=== PATIENT | female | born 1985 | race Caucasian/White ===

== ENCOUNTER 2019-07-30 05:44 | Inpatient (IN) ==
[2019-07-30] MEDS ORDERED: ONDANSETRON 4 MG/2 ML VIAL IV PRN ×2 (05:54→13:28)
[2019-07-30] MEDS ORDERED: LACTATED RINGERS 1,000 ML IV SCH (06:00)
[2019-07-30 06:17] LABS: Basophils % 0.3 % (0.0-0.8); Eosinophils # 0.1 10*3/uL (0.0-0.87); Eosinophils % 0.8 % (0.00-10.9); Hematocrit 36.3 VOL% (35.7-47.0); Hemoglobin 11.8 GM/DL (12.0-16.0); Immature Granulocytes Absolute 0.12 #; Lymphocytes # 2.3 10*3/uL (1.4-4.0); Lymphocytes % 19.4 % (21.3-54.2); Mean Corpuscular HGB Conc 32.5 GM/DL (32-36); Mean Corpuscular Volume 78.9 FL (87-102); Mean Platelet Volume 10.6 FL (9.6-12.0); Monocytes % 7.6 % (1.7-12.7); Neutrophils % 70.9 % (38.7-73.9); Platelet Count 291 T/CUMM (130-400); White Blood Count 11.6 T/CUMM (4-12)
[2019-07-30] MEDS ORDERED: OXYTOCIN/LR 20 UNIT/1,000 ML BAG IV ONE ×2 (07:05→13:28)
[2019-07-30 07:25] LABS: INR 0.8; PT Patient Result 9.2 SECS (9.6-12.2); Partial Thromboplastin Time 23.1 SECS (20.8-36.0)
[2019-07-30] MEDS ORDERED: OXYTOCIN/LR 20 UNIT/1,000 ML BAG IV SCH (07:30)
[2019-07-30 07:33] LABS: Albumin 2.7 G/DL (3.4-5.0); Bilirubin,Direct 0.15 MG/DL (0.0-0.20); Bilirubin,Total 0.4 MG/DL (0.2-1.0); Calcium 9.7 MG/DL (8.5-10.1); Osmolality,Calculated 274.7 MOS/KG (273-304)
[2019-07-30] MEDS ORDERED: ONDANSETRON 4 MG/2 ML VIAL IV ONE (07:43)
[2019-07-30] MEDS ORDERED: CITRIC ACID/SODIUM CITRATE 30 ML UDCUP PO ONE (07:43)
[2019-07-30] MEDS ORDERED: NALOXONE 0.4 MG/ML VIAL IV PRN (07:43)
[2019-07-30] MEDS ORDERED: hydrOXYzine HCL 25 MG/1 ML VIAL IM PRN (07:43)
[2019-07-30] MEDS ORDERED: diphenhydrAMINE 50 MG/1 ML VIAL IV PRN ×2 (07:43)
[2019-07-30] MEDS ORDERED: ePHEDrine 50 MG/ML AMP IV PRN (07:43)
[2019-07-30] MEDS ORDERED: PROMETHAZINE 25 MG/1 ML VIAL IM ONE (07:43)
[2019-07-30] MEDS ORDERED: LACTATED RINGERS 1,000 ML IV ONE (07:43)
[2019-07-30] MEDS ORDERED: FAMOTIDINE 20 MG/2 ML VIAL IV ONE (07:43)
[2019-07-30] MEDS ORDERED: fentaNYL 2 MCG/ROPIV 0.2% EPID 100 ML EPIDURAL SCH (08:00)
[2019-07-30] MEDS: LABETALOL 100 MG TABLET PO SCH ×3 (08:28→21:23)
[2019-07-30 11:14] LABS: Amorphous Crystals,Urine Occasional /HPF (Few); Apearance,Urine Slightly Hazy (Clear); Bacteria,Urine Many /HPF (Few); Bilirubin,Urine Negative (Negative); Blood, Urine Moderate mg/dL (Negative); Glucose,Urine (UA) Negative (Negative); Ketones,Urine 5 mg/dL (Negative); Mucus,Urine Occasional /LPF (Occasional); Nitrite,Urine Negative (Negative); Protein,Urine Negative; RBC,Urine 11 /HPF (0-4); Squamous Epithelial Cell,Urine Occasional /HPF (0-10); Urine Color Yellow (Yellow); Urine Specific Gravity 1.006 (1.001-1.035); Urine Urobilinogen < 2.0 EU/DL (0.2-1.0); WBC,Urine 65 /HPF (0-6)
[2019-07-30] MEDS ORDERED: miSOPROStoL 200 MCG TABLET ONE (12:20)
[2019-07-30] MEDS ORDERED: CARBOPROST TROMETHAMINE 250 MCG/ML AMP IM ONE (12:20)
[2019-07-30] MEDS ORDERED: LIDOCAINE 1% 50 ML VIAL ONE (12:20)
[2019-07-30] MEDS ORDERED: WITCH HAZEL PADS 100/JAR TOP PRN (13:28)
[2019-07-30] MEDS ORDERED: DIPH/TET/ACEL PERT BOOSTER VACCINE 0.5 ML VIAL IM ONE (13:28)
[2019-07-30] MEDS ORDERED: MEASLES/MUMPS/RUBELLA VACCINE 0.5 ML VIAL SUBCUT ONE (13:28)
[2019-07-30] MEDS ORDERED: ACETAMINOPHEN 325 MG TABLET PO PRN (13:28)
[2019-07-30] MEDS ORDERED: HYDROCORTISONE 2.5% RECTAL CREAM 30 GM TUBE TOP PRN (13:28)
[2019-07-30] MEDS ORDERED: BENZOCAINE 20%/MENTHOL 0.5% SPRAY 56 GM CAN TOP PRN (13:28)
[2019-07-30] MEDS ORDERED: oxyCODONE/ACETAMINOPHEN 5-325 MG TABLET PO PRN (13:28)
[2019-07-30] MEDS ORDERED: RHO(D) IMMUNE GLOBULIN 300 MCG SYRINGE IM ONE (13:28)
[2019-07-30] MEDS ORDERED: LANOLIN 50% CREAM 0.3 OZ TUBE TOP PRN (13:28)
[2019-07-30] MEDS ORDERED: BISACODYL 10 MG SUPP RECTAL PRN (13:28)
[2019-07-30] MEDS: DOCUSATE SODIUM 100 MG CAPSULE PO SCH (21:23)
[2019-07-31] MEDS: IBUPROFEN 800 MG TABLET PO PRN ×3 (02:03→20:44)
[2019-07-31 05:46] LABS: Basophils % 0.2 % (0.0-0.8); Eosinophils # 0.1 10*3/uL (0.0-0.87); Eosinophils % 0.6 % (0.00-10.9); Hematocrit 31.5 VOL% (35.7-47.0); Hemoglobin 10.1 GM/DL (12.0-16.0); Immature Granulocytes % 0.5 %; Immature Granulocytes Absolute 0.08 #; Lymphocytes # 1.3 10*3/uL (1.4-4.0); Lymphocytes % 8.2 % (21.3-54.2); Mean Corpuscular HGB Conc 32.1 GM/DL (32-36); Mean Corpuscular Volume 79.3 FL (87-102); Mean Platelet Volume 11.6 FL (9.6-12.0); Monocytes % 8.4 % (1.7-12.7); Neutrophils % 82.1 % (38.7-73.9); Platelet Count 207 T/CUMM (130-400); Red Blood Count 3.97 MC/CUMM (3.8-5.5); Red Cell Distribution Width 14.1 % (9.3-17.3); White Blood Count 16.2 T/CUMM (4-12)
[2019-07-31] MEDS: DOCUSATE SODIUM 100 MG CAPSULE PO SCH ×2 (08:58→20:44)
[2019-07-31] MEDS: MAGNESIUM HYDROXIDE SUSP 30 ML UDCUP PO PRN ×2 (08:59→20:44)
[2019-07-31] MEDS: LABETALOL 100 MG TABLET PO SCH ×2 (08:59→13:14)
[2019-07-31] MEDS ORDERED: LABETALOL 100 MG TABLET ONE (13:09)
[2019-07-31] MEDS: ceFAZolin 2,000 MG in PREMIX 1 EACH IV SCH ×2 (14:49→20:44)
[2019-07-31] MEDS: LABETALOL 200 MG TABLET PO SCH ×2 (16:36→23:45)
[2019-08-01] MEDS: LABETALOL 200 MG TABLET PO SCH (01:13)
[2019-08-01] MEDS: ceFAZolin 2,000 MG in PREMIX 1 EACH IV SCH ×4 (02:27→21:13)
[2019-08-01] MEDS: oxyCODONE/ACETAMINOPHEN 5-325 MG TABLET PO PRN ×2 (02:31→19:53)
[2019-08-01] MEDS: IBUPROFEN 800 MG TABLET PO PRN ×3 (02:31→19:52)
[2019-08-01] MEDS: DOCUSATE SODIUM 100 MG CAPSULE PO SCH ×2 (09:29→21:47)
[2019-08-01] MEDS: LABETALOL 100 MG TABLET PO SCH ×2 (09:29→21:47)
[2019-08-01] MEDS: LACTATED RINGERS 1,000 ML IV SCH (20:56)
[2019-08-01] MEDS: CLINDAMYCIN INJ 900 MG in PREMIX 1 EACH IV SCH (21:45)
[2019-08-01] MEDS: ENOXAPARIN 40 MG/0.4 ML SYRINGE SUBCUT SCH (21:47)
[2019-08-01] MEDS ORDERED: GENTAMICIN INJ 280 MG in SODIUM CHLORIDE 0.9% 100 ML IV ONE (22:00)
[2019-08-02] MEDS: ceFAZolin 2,000 MG in PREMIX 1 EACH IV SCH ×3 (03:42→16:44)
[2019-08-02] MEDS: IBUPROFEN 800 MG TABLET PO PRN ×2 (03:42→16:16)
[2019-08-02] MEDS: CLINDAMYCIN INJ 900 MG in PREMIX 1 EACH IV SCH (05:19)
[2019-08-02] MEDS: LACTATED RINGERS 1,000 ML IV SCH ×2 (06:55→18:35)
[2019-08-02] MEDS: GENTAMICIN INJ 160 MG in SODIUM CHLORIDE 0.9% 100 ML IV SCH ×2 (06:55→13:56)
[2019-08-02] MEDS: DOCUSATE SODIUM 100 MG CAPSULE PO SCH ×2 (08:36→21:18)
[2019-08-02] MEDS: LABETALOL 100 MG TABLET PO SCH ×2 (08:36→21:18)
[2019-08-02] MEDS ORDERED: SERTRALINE 25 MG TABLET PO SCH (21:00)
[2019-08-02] MEDS: ENOXAPARIN 40 MG/0.4 ML SYRINGE SUBCUT SCH (21:18)
[2019-08-02] MEDS: MAGNESIUM HYDROXIDE SUSP 30 ML UDCUP PO PRN (21:18)
[2019-08-02] MEDS: CEFUROXIME 250 MG TABLET PO SCH (21:18)
[2019-08-03] MEDS: oxyCODONE/ACETAMINOPHEN 5-325 MG TABLET PO PRN (01:14)
[2019-08-03] MEDS: IBUPROFEN 800 MG TABLET PO PRN (01:14)
[2019-08-03] MEDS: DOCUSATE SODIUM 100 MG CAPSULE PO SCH (08:45)
[2019-08-03] MEDS: LABETALOL 100 MG TABLET PO SCH (08:45)
[2019-08-03] MEDS: CEFUROXIME 250 MG TABLET PO SCH (08:47)
[2019-08-03 11:58] VITALS: BP 146/83
== END 2019-08-03 13:35 | disposition home or self-care (01) | DRG 807 ==
LOC: N.LDOUT 05:44 → N.LD 05:46 → N.OB 15:14
PROVIDERS: ADMIT Specialist; ATTEND Specialist